=== PATIENT | female | born 1965 | race Caucasian/White ===

== ENCOUNTER 2020-09-08 07:24 | Outpatient (REF) | payer OTHER, SELFPAY ==
--- NOTE | ~2020-09-08 | CT_ITS ---
EXAMINATION: CT CHEST WITHOUT CONTRAST CLINICAL INFORMATION: Pulmonary nodule COMPARISON: Previous chest CT scans January 2018 and February 2019 TECHNIQUE: Multidetector volumetric CT imaging of the chest was done. Axial MIP volume rendering provided. Sagittal and coronal reformatted images were obtained. This CT examination was performed using dose optimization techniques as appropriate, variously including the following: *Automated exposure control *Adjustment of mA and/or kV according to patient size (this includes techniques or standardized protocols for targeted exams where dose is matched to indication/reason for exam; i.e. extremities or head) *Use of iterative reconstruction technique DLP: 146 mGy-cm FINDINGS: OUTBOUND SALES ADVISOR: Unremarkable LUNGS: There are small pulmonary nodules that are stable. The largest is a 5 x 7 mm peripheral or subpleural right middle lobe nodule adjacent to the minor fissure. Again this probably represents a subpleural lymph node. No new pulmonary nodules are seen. MEDIASTINUM: The mediastinum is normal. PLEURA: There is no pleural effusion. No pleural mass or thickening. AXILLA: No lymphadenopathy. UPPER ABDOMEN: There is diverticulosis of the colon. OSSEOUS STRUCTURES: There are mild degenerative changes of the spine and curvature to the left. CT/CT chest wo con IMPRESSION: Stable pulmonary nodules.
== END 2020-09-08 07:25 | disposition home or self-care (01) ==
LOC: HO.CT 07:24
PROVIDERS: PCP Internal Medicine; Visit Provider Surgery
DX: R91.1 Solitary pulmonary nodule (principal)
CPT/HCPCS: 71250

== ENCOUNTER 2020-10-29 11:02 | Outpatient (REF) | payer OTHER, SELFPAY ==
--- NOTE | ~2020-10-29 | MR_ITS ---
EXAMINATION: MR BREAST WITHOUT AND WITH CONTRAST, BILATERAL CLINICAL INFORMATION: High-risk screening. COMPARISON: MRI 01/25/2018. Outside MRI report only 10/31/2019 TECHNIQUE: Imaging was performed with a dedicated breast coil. Prior to the administration of contrast, bilateral axial T1 and bilateral axial T2 weighted sequences were obtained. After the uneventful administration of?7.5 mL of Gadavist, dynamic contrast-enhanced VIBRANT series through the breasts in the axial plane were performed. Subtracted images were performed and reviewed. A delayed sagittal sequence through both breasts was acquired. Additionally, CAD post-processing, including maximum intensity projections, 3-D reconstructions and kinetic analysis, were performed an independent workstation and reviewed by the interpreting radiologist is a portion of this exam. FINDINGS: The patient's fibroglandular tissue demonstrates moderate background enhancement. LEFT BREAST: No suspicious masslike or non-masslike enhancement. No abnormal skin thickening or nipple retraction. No abnormal architectural distortion. Review of the T2 weighted images demonstrates no fibrocystic changes or dilated ducts. Review of kinetic images reveals no additional findings. RIGHT BREAST: Stable enhancing intramammary lymph node, 8:00. No suspicious masslike or non-masslike enhancement. No abnormal skin thickening or nipple retraction. No abnormal architectural distortion. Review of the T2 weighted images demonstrates no fibrocystic changes or dilated ducts. Review of kinetic images reveals no additional findings. There is no suspicious internal mammary chain or axillary adenopathy. Limited views of the chest and abdomen are unremarkable. Stable T2 hyperintense lesion, partially imaged, within the left lobe of the liver compared to 2018. Finding most consistent with a cyst. MR/MR breast BI wo/w con IMPRESSION: No MR specific evidence of malignancy. ASSESSMENT: LEFT BREAST: BI-RADS 1-Negative RIGHT BREAST: BI-RADS 1-Negative RECOMMENDATIONS: Clinical follow-up. Continued annual mammographic surveillance. Further breast MRI as risk factors dictate.
== END 2020-10-29 11:03 | disposition home or self-care (01) ==
LOC: HO.MRI 11:02
PROVIDERS: Visit Provider Surgery
DX: Z12.39 Encounter for other screening for malignant neoplasm of breast (principal)
CPT/HCPCS: 77049; A9585

== ENCOUNTER → 2021-01-21 09:00 | Outpatient (BNVA) | payer OTHER, SELFPAY | PROVIDERS: Visit Provider Surgery ==

== ENCOUNTER 2021-02-09 12:40 | Outpatient (REF) | payer OTHER, SELFPAY ==
--- NOTE | ~2021-02-09 | MM_ITS ---
EXAMINATION: MM SCREENING DIGITAL BREAST TOMOSYNTHESIS, BILATERAL CLINICAL INFORMATION: Screening. Asymptomatic. The lifetime risk of breast cancer based on the Tyrer-Cuzick Model is 21%. COMPARISON: Mammography: 02/06/2020, 01/31/2019, 01/25/2018, MR breasts 10/29/2020. TECHNIQUE: Digital breast tomosynthesis is performed in both the craniocaudal and mediolateral oblique views along with computer-aided detection (CAD). Synthesized 2D images are generated from the tomosynthesis. Additional exaggerated left CC view is provided. FINDINGS: There are scattered areas of fibroglandular density (ACR BI-RADS breast composition Category b). There are no significant masses, abnormal calcifications, or other abnormalities. Incidental intramammary node again seen mid outer right breast. There is no developing density the breasts. The axilla and skin contours are unremarkable. No significant changes. MM/MM tomosynthesis screening BI IMPRESSION: No mammographic evidence of malignancy. ASSESSMENT: BI-RADS 2: Benign RECOMMENDATION: 1. Routine annual mammography screening. 2. The lifetime risk of breast cancer based on the Tyrer-Cuzick Model is 21%. Additional annual adjunct screening with breast MRI may be of benefit in women with a risk score of 20% or greater. This patient's information was entered into a reminder system with a target due date for their next mammogram.
== END 2021-02-09 12:41 | disposition home or self-care (01) ==
LOC: HO.MAMMO 12:40
PROVIDERS: Visit Provider Surgery
DX: Z12.31 Encounter for screening mammogram for malignant neoplasm of breast (principal)
CPT/HCPCS: 77063; 77067

== ENCOUNTER 2021-09-09 07:26 | Outpatient (REF) | payer OTHER, SELFPAY ==
--- NOTE | ~2021-09-09 | CT_ITS ---
EXAMINATION: CT CHEST WITHOUT CONTRAST CLINICAL INFORMATION: Solitary pulmonary nodule. COMPARISON: CT chest 09/08/2020. TECHNIQUE: Multidetector volumetric CT imaging of the chest was done. Axial MIP volume rendering provided. Sagittal and coronal reformatted images were obtained. This CT examination was performed using dose optimization techniques as appropriate, variously including the following: *Automated exposure control *Adjustment of mA and/or kV according to patient size (this includes techniques or standardized protocols for targeted exams where dose is matched to indication/reason for exam; i.e. extremities or head) *Use of iterative reconstruction technique DLP: 143 mGy-cm FINDINGS: TORPEDO SPECIALIST: Mildly elevated right hemidiaphragm. LUNGS: The lungs are well expanded and clear of acute pneumonic process. There is a 1 mm calcified nodule right upper lobe image 154/6, focal right minor fissure nodular thickening measuring 7 mm, stable. No additional lung nodule seen. MEDIASTINUM: The thyroid lobes are symmetrical and normal. The central trachea and bronchi are widely patent. There is no pericardial effusion seen. No abnormal-sized mediastinal lymph node seen. PLEURA: There is no pleural effusion. No pleural mass or thickening. AXILLA: No lymphadenopathy. UPPER ABDOMEN: Visualized liver, spleen, pancreas and bilateral adrenal glands are normal. There are no radiopaque gallstones. OSSEOUS STRUCTURES: No lytic or sclerotic process seen. There is mild ventral spondylosis. CT/CT chest wo con IMPRESSION: Stable pulmonary nodules. The right minor fissure nodule is likely a small lymph node. Fleischner guidelines were followed.
== END 2021-09-09 07:27 | disposition home or self-care (01) ==
LOC: HO.CT 07:26
PROVIDERS: Visit Provider Surgery
DX: R91.1 Solitary pulmonary nodule (principal)
CPT/HCPCS: 71250

== ENCOUNTER 2021-11-11 08:05 | Outpatient (REF) | payer OTHER, SELFPAY ==
--- NOTE | ~2021-11-11 | MR_ITS ---
EXAMINATION: MR BREAST WITHOUT AND WITH CONTRAST, BILATERAL CLINICAL INFORMATION: High risk screening. Family history of malignant neoplasm of breast. The estimated lifetime risk of developing breast cancer is 21%. COMPARISON: Portions of a previous study 10/29/2020. Mammography (nondiagnostic monitor review): 02/09/2021. TECHNIQUE: A 1.5 T system and a dedicated breast coil. T1-weighted sequences without fat-saturation were obtained prior to the administration of contrast. Fat-saturated T1 and T2-weighted sequences were also acquired. The patient received 7.5 mL of IV gadolinium-based contrast, Gadavist. Multiple sequential dynamic T1-weighted sequences were obtained through both breasts with fat-saturation. Subtracted images were reviewed. CAD postprocessing with 3-D reconstructions, maximum intensity projections and kinetic analysis was performed by the interpreting radiologist at an independent workstation and reviewed as a portion of this exam. FINDINGS: Amount of Remaining Fibroglandular Signal: There are scattered areas of fibroglandular tissue (ACR BI-RADS breast composition category B).* Background Parenchymal Enhancement: Mild Symmetry of Background Enhancement: Symmetric RIGHT BREAST: There are no suspicious findings. Masses: There are no suspicious enhancing masses. There is a sharply circumscribed T2 intense persistently enhancing 0.4 cm mass in the 8 o'clock position 4 cm from the right nipple. This corresponds to a sharply circumscribed low density mass on mammography. This does not require any further evaluation. Non-mass Enhancement: There is no suspicious non-mass enhancement. Focus: There are no suspicious enhancing foci. Non-enhancing Findings: Associated findings: There are no suspicious associated findings. Kinetic Curve Assessment: Initial Phase: There are no suspicious areas of color signal. Delayed Phase: There are no areas of washout kinetics. LEFT BREAST: There are no suspicious findings. Masses: There are no suspicious enhancing masses. Non-mass Enhancement: There is no suspicious non-mass enhancement. Focus: There are no suspicious enhancing foci. Non-enhancing Findings: Associated Findings: There are no suspicious associated findings. Kinetic Curve Assessment: Initial Phase: There are no areas of suspicious color signal. Delayed Phase: There are no areas of washout kinetics. The axillary lymph nodes are morphologically normal. No suspicious internal mammary lymph nodes are seen. No suspicious abnormality in the visualized portions of chest or abdomen. There is an unchanged 1.2 cm circumscribed T2 intense lesion in hepatic segment 2 (series 6, image 35). The stability since 2018 is reassuring. This does not require any further evaluation. MR/MR breast BI wo/w con IMPRESSION: No MR evidence of malignancy. No suspicious interval change. ASSESSMENT: Right Breast: ACR BI-RADS 2: Benign finding. Left Breast: ACR BI-RADS 1: Negative examination. RECOMMENDATIONS: Continue screening.
== END 2021-11-11 08:06 | disposition home or self-care (01) ==
LOC: HO.MRI 08:05
PROVIDERS: Visit Provider Surgery
DX: Z91.89 Other specified personal risk factors, not elsewhere classified (principal); Z80.3 Family history of malignant neoplasm of breast
CPT/HCPCS: 77049; A9585

== ENCOUNTER 2022-02-21 11:50 | Outpatient (REF) | payer OTHER, SELFPAY ==
--- NOTE | ~2022-02-21 | MM_ITS ---
EXAMINATION: MM SCREENING DIGITAL BREAST TOMOSYNTHESIS, BILATERAL CLINICAL INFORMATION: Screening. Asymptomatic. The lifetime risk of breast cancer based on the Tyrer-Cuzick Model is 21%. COMPARISON: Mammography: 02/09/2021, 02/06/2020, 01/31/2019; MRI breasts 11/11/2021 TECHNIQUE: Digital breast tomosynthesis is performed in both the craniocaudal and mediolateral oblique views along with computer-aided detection (CAD). Synthesized 2D images are generated from the tomosynthesis. FINDINGS: There are scattered areas of fibroglandular density (ACR BI-RADS breast composition Category b). There are no significant masses, abnormal calcifications, or other abnormalities. Chronic circumscribed nodule mid 9:00 right breast is similar to prior studies. The axilla and skin contours are unremarkable. MM/MM tomosynthesis screening BI IMPRESSION: No mammographic evidence of malignancy. ASSESSMENT: BI-RADS 2: Benign RECOMMENDATION: Routine annual mammography screening. This patient's information was entered into a reminder system with a target due date for their next mammogram.
== END 2022-02-21 11:51 | disposition home or self-care (01) ==
LOC: HO.MAMMO 11:50
PROVIDERS: PCP Internal Medicine; Visit Provider Surgery
DX: Z12.31 Encounter for screening mammogram for malignant neoplasm of breast (principal)
CPT/HCPCS: 77063; 77067

== ENCOUNTER 2022-08-24 09:04 | Outpatient (REF) | payer OTHER, SELFPAY ==
--- NOTE | ~2022-08-24 | CT_ITS ---
EXAMINATION: CT CHEST WITHOUT CONTRAST CLINICAL INFORMATION: Solitary pulmonary nodule. COMPARISON: CT brain 09/09/2021, 09/08/2020. TECHNIQUE: Multidetector volumetric CT imaging of the chest was done. Axial MIP volume rendering provided. Sagittal and coronal reformatted images were obtained. This CT examination was performed using dose optimization techniques as appropriate, variously including the following: *Automated exposure control *Adjustment of mA and/or kV according to patient size (this includes techniques or standardized protocols for targeted exams where dose is matched to indication/reason for exam; i.e. extremities or head) *Use of iterative reconstruction technique DLP: 143 mGy-cm FINDINGS: SWAGE TOOLSETTER: Well-expanded lungs. LUNGS: The lungs are well expanded and clear of acute pneumonic process. Again visualized is a nodule along the right minor fissure measuring 7 mm x 5 mm and has been stable since last two CT exams. Punctate calcification measuring 1 mm in right upper lobe is stable. MEDIASTINUM: The thyroid lobes are symmetric and normal. The central trachea and the bronchi are widely patent. The heart size and the great vessels are normal caliber. No pericardial effusion seen. No abnormal-size mediastinal or hilar lymph nodes. CORONARY ARTERY CALCIFICATION: None visualized on this study. PLEURA: There is no pleural effusion, thickening or calcified plaques. AXILLA: No lymphadenopathy. UPPER ABDOMEN: Visualized liver, spleen, pancreas and bilateral adrenal glands unremarkable. OSSEOUS STRUCTURES: No aggressive lytic or sclerotic process seen. Minimal ventral spondylosis dorsal spine. CT/CT chest wo IV con IMPRESSION: 1. Stable right minor fissure nodule. No new nodules seen. 2. No abnormal mediastinal or axillary lymphadenopathy. Fleischner guidelines were followed.
== END 2022-08-24 09:05 | disposition home or self-care (01) ==
LOC: HO.CT 09:04
PROVIDERS: PCP Internal Medicine; Visit Provider Surgery
DX: R91.1 Solitary pulmonary nodule (principal)
CPT/HCPCS: 71250

== ENCOUNTER 2023-01-19 08:53 | Outpatient (AMB) | payer OTHER, SELFPAY ==
--- NOTE | 2023-01-19 08:53 | A.OFFVIS_ITS ---
Intake Vital Signs 01/19/23 09:00 Height 5 ft 7 in Weight 163 lb 2 oz BMI 25.5 BP 132/80 Blood Pressure Location Lt brachial Position Sitting Pulse 96 Intake Visit Reasons: YEARLY BREAST EXAMINATION Intake Note: Patient is seen in office for yearly breast exam. 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 Her family history is significant for a maternal great grandmother with breast cancer in their 70s, maternal grandmother with breast cancer in her 60s, maternal aunt with breast cancer at the age of 75, and a maternal aunt with breast cancer at the age of 65. Her mother was diagnosed with an invasive ductal carcinoma, grade 1 measuring 7 mm in diameter at the age of 80. She continues on anastrozole and did not undergo radiation therapy. She seems to be tolerating this well. The patient previously underwent risk evaluation using the Tyrer-Cuzick assessment model and was identified as having a 27% lifetime risk of breast cancer. Genetic testing was negative for BRCA1 and 2. A previous left breast needle localization on 10/23/2008 revealed a radial scar with no malignancy. Her last mammogram dated 02/21/2022 revealed no mammographic evidence of malignancy (BI-RADS 2). The Tyrer-Cuzick remaining lifetime risk of breast cancer was calculated at 21%. MRI of the breasts dated 11/11/2021 revealed no evidence of malignancy in either breast (BI-RADS 2 right, BI-RADS 1 left). She is due for a breast MRI currently. She was found to have nodules in the chest CT performed on 02/12/2008. CT of the chest from 08/24/2021 revealed the previously identified nodules were stable. She denies any new breast symptoms and generally feels well. [facility] Surgical History History of breast biopsy (10/23/08) History of arthroscopy of knee History of lumpectomy of left breast History of foot surgery Family History Mother Breast cancer, Onset Age: 80 Maternal Grandmother Breast cancer, Onset Age: 60 Maternal Aunt Breast cancer, Onset Age: 75 Social History Alcohol intake: never Patient Tobacco Use Status: Never used Tobacco Review of Systems Const All systems reviewed & are unremarkable except as noted in HPI and below Denies chills, Denies fever(s) and Denies poor appetite Card Denies chest pain, Denies rapid heart rate and Denies irregular heart rhythm Resp Denies chest congestion, Denies cough and Denies hemoptysis GI Denies abdominal pain, Denies constipation and Denies diarrhea Denies nipple discharge Skin/Breast Denies breast swelling, Denies breast skin changes, Denies breast pain, Denies breast mass, Denies change in breast shape and Denies nipple discharge Neuro Reports no additional complaints Mk/Lymph Denies lymphadenopathy Physical Exam Vital Signs: Last Vital Signs Pulse 96 01/19/23 09:00 BP 132/80 01/19/23 09:00 BMI result Body Mass Index 25.5 Const General: healthy appearing, no acute distress and well developed Nutritional Appearance: well nourished Orientation/consciousness: patient oriented x3 Limitations: no limitations HEENT Head: Yes normocephalic and Yes atraumatic Neck Neck: Yes no lymphadenopathy and Yes no JVD Chest Other: Left breast: No skin change, no nipple retraction, no nipple discharge, no palpable mass, no enlarged lymph nodes. Right breast: No skin change, no nipple retraction, no nipple discharge, no palpable mass, no enlarged lymph nodes GI Inspection: Yes normal to inspection Skin General skin exam: no rashes or lesions noted Neuro General: patient oriented x3 Extrem General: Yes no clubbing, cyanosis or edema Assessment & Plan Assessment & Plan (1) Family history of breast cancer: Code(s): Z80.3 - Family history of malignant neoplasm of breast (2) At high risk for breast cancer: Code(s): Z91.89 - Other specified personal risk factors, not elsewhere classified (3) Lung nodule: Code(s): R91.1 - Solitary pulmonary nodule Plan 57-year-old female returning for a yearly breast evaluation due to her high risk for breast cancer. She feels well and has no ongoing breast symptoms. Her most recent mammogram of 02/21/2022 revealed no evidence of malignancy (BI-RADS 2). She is due for a repeat mammogram in February 2023. MRI dated 11/11/2021 revealed no evidence of malignancy or new suspicious findings (BI-RADS 1 left and BI-RADS 2 right). She is now due for an annual breast MRI. Examination today revealed no suspicious findings in either breast, no skin changes, no nipple discharge, no enlarged lymph nodes. She should follow up in approximately 1 year for clinical breast examination. She is welcome to call sooner for any concerns. Orders: Orders MR breast BI wo/w con Today Z80.3 - Family history of malignant neoplasm of breast, Z91.89 - Other specified personal risk factors, not elsewhere classified Coding Level of Care Code Est Pt Level 3 (72450) Diagnoses Family history of breast cancer Z80.3 At high risk for breast cancer Z91.89 Lung nodule R91.1
[2023-01-19 09:00] VITALS: BP 132/80; PULSE 96; BMI 25.5
== END 2023-01-19 09:12 | disposition home or self-care (01) ==
PROVIDERS: PCP Internal Medicine; Visit Provider Surgery
DX: Z80.3 Family history of malignant neoplasm of breast (principal); Z91.89 Other specified personal risk factors, not elsewhere classified; R91.1 Solitary pulmonary nodule
CPT/HCPCS: 99213

== ENCOUNTER → 2023-01-19 08:53 | Outpatient (BNVA) | payer OTHER, SELFPAY | PROVIDERS: PCP Internal Medicine; Visit Provider Surgery | DX: Z80.3 Family history of malignant neoplasm of breast (principal); Z91.89 Other specified personal risk factors, not elsewhere classified ==

== ENCOUNTER 2023-03-05 11:45 | Outpatient (REF) | payer OTHER, SELFPAY | END 2023-03-05 11:46 | disposition home or self-care (01) | LOC: HO.MAMMO 11:45 | PROVIDERS: Absent Provider Obstetrics & Gynecology Gynecology; PCP Internal Medicine; Visit Provider Internal Medicine | DX: Z12.31 Encounter for screening mammogram for malignant neoplasm of breast (principal) | CPT/HCPCS: 77063; 77067 ==

== ENCOUNTER → 2023-03-05 12:00 | Outpatient (BNV) | payer OTHER, SELFPAY | PROVIDERS: Absent Provider Obstetrics & Gynecology Gynecology; PCP Internal Medicine; Visit Provider Radiology Diagnostic Radiology | DX: Z12.31 Encounter for screening mammogram for malignant neoplasm of breast (principal) | CPT/HCPCS: 77063; 77067 ==

== ENCOUNTER 2023-03-15 07:59 | Outpatient (REF) | payer OTHER, SELFPAY ==
--- NOTE | ~2023-03-15 | MR_ITS ---
EXAMINATION: MR BREAST WITHOUT AND WITH CONTRAST, BILATERAL CLINICAL INFORMATION: 57-year-old for high-risk screening family history. Prior to the mottled 21% COMPARISON: MRI 11/11/2021, 10/29/2020 and correlation to mammogram of 03/05/2023 TECHNIQUE: Imaging was performed with a dedicated breast coil. Prior to the administration of contrast, bilateral axial T1 and bilateral axial T2 weighted sequences were obtained. After the uneventful administration of?7.5 mL of Gadavist, dynamic contrast-enhanced VIBRANT series through the breasts in the axial plane were performed. Subtracted images were performed and reviewed. A delayed sagittal sequence through both breasts was acquired. Additionally, CAD post-processing, including maximum intensity projections, 3-D reconstructions and kinetic analysis, were performed an independent workstation and reviewed by the interpreting radiologist is a portion of this exam. FINDINGS: The patient's fibroglandular tissue demonstrates minimal background enhancement. LEFT BREAST: No suspicious masslike or non-masslike enhancement. No abnormal skin thickening or nipple retraction. No abnormal architectural distortion. Review of the T2 weighted images demonstrates no fibrocystic changes or dilated ducts. Review of kinetic images reveals no additional findings. RIGHT BREAST: No suspicious masslike or non-masslike enhancement. No abnormal skin thickening or nipple retraction. No abnormal architectural distortion. Review of the T2 weighted images demonstrates no fibrocystic changes or dilated ducts. Review of kinetic images reveals no additional findings. There is no suspicious internal mammary chain or axillary adenopathy. Limited views of the chest and abdomen are unremarkable. MR/MR breast BI wo/w con IMPRESSION: No MR specific evidence of malignancy. ASSESSMENT: LEFT BREAST: BI-RADS 1-Negative RIGHT BREAST: BI-RADS 1-Negative RECOMMENDATIONS: Routine mammographic imaging as per most recent study and MRI as per high-risk protocol.
[2023-03-15] MEDS: gadobutroL 7.5 ML VIAL IVPUSH (09:04)
== END 2023-03-15 08:00 | disposition home or self-care (01) ==
LOC: HO.MRI 07:59
PROVIDERS: PCP Internal Medicine; Visit Provider Surgery
DX: Z91.89 Other specified personal risk factors, not elsewhere classified (principal); Z80.3 Family history of malignant neoplasm of breast
CPT/HCPCS: 77049; A9585

== ENCOUNTER 2023-08-14 09:07 | Outpatient (AMB) | payer OTHER, SELFPAY ==
--- NOTE | 2023-08-14 09:09 | MHC.OFFVIS ---
Intake Vital Signs 08/14/23 09:18 Height 5 ft 7 in Weight 164 lb BMI 25.7 BP 174/71 H Blood Pressure Location Lt brachial Position Sitting Pulse 108 H Intake Visit Reasons: lump in groin area, had CT done Intake Note: Patient is seen in office for evaluation and treatment of a lump in the right groin area. 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 She reports since half-way she has been more active with exercise including performing squats and playing pickleball. She developed increased pain and swelling in the pubic area and bilateral groins right greater than left. She also reported hematuria which is being worked up by Urology. She recently underwent CT abdomen and pelvis which revealed no evidence of a hernia. She has been icing the groins but does not feel this is helping. She mainly feels the swelling on the right lower quadrant now. She denies nausea, vomiting, fever or chills. I have been no changes in her bowel habits. [facility], [facility] Surgical History History of breast biopsy (10/23/08) History of arthroscopy of knee History of lumpectomy of left breast History of foot surgery Family History Mother Breast cancer, Onset Age: 80 Maternal Grandmother Breast cancer, Onset Age: 60 Maternal Aunt Breast cancer, Onset Age: 75 Social History Alcohol intake: never Patient Tobacco Use Status: Never used Tobacco Review of Systems Const All systems reviewed & are unremarkable except as noted in HPI and below Physical Exam Const General: no acute distress Nutritional Appearance: well nourished Orientation/consciousness: patient oriented x3 Limitations: no limitations HEENT Head: Yes normocephalic and Yes atraumatic Resp Effort & Inspection: normal respiratory effort, no audible wheezes, no cough and no respiratory distress GI Other: Examination in the standing position with Valsalva maneuvers reveals no palpable inguinal hernia on either side. No spigelian hernia appreciated. Patient points to the area of the inguinal canal as the most tender however no lumps are appreciated. Inspection: Yes normal to inspection Palpation (GI): Soft to palpation, nontender, no guarding and not rigid Skin Other: Warm, dry, no rash Neuro General: patient oriented x3 Extrem Other: No peripheral edema Assessment & Plan Assessment & Plan (1) Abdominal muscle strain: Code(s): S39.011A - Strain of muscle, fascia and tendon of abdomen, initial encounter Qualifiers: Encounter type: initial encounter Qualified Code(s): S39.011A - Strain of muscle, fascia and tendon of abdomen, initial encounter Plan Patient presents with complaints of lower abdominal pain/groin pain after a period of exercise. Review of a CT abdomen and pelvis revealed no evidence of an inguinal hernia, spigelian hernia, diverticulitis, abscess formation or other fluid collections. There is evidence of diverticulosis however. Exam is more suggestive of muscle strain from the recent exercise. No hernias are identified by examination either. I recommended a period of rest relaxation with warm compresses or warm soaks to the groin. She should take ibuprofen 200 mg as needed for increased discomfort. She is welcome to return for any changes. Coding Level of Care Code Est Pt Level 3 (69583) Diagnoses Strain of abdominal muscle, initial encounter S39.011A Encounter type: initial encounter
[2023-08-14 09:18] VITALS: BP 174/71; PULSE 108; BMI 25.7
== END 2023-08-14 10:01 | disposition home or self-care (01) ==
PROVIDERS: PCP Internal Medicine; Visit Provider Surgery
DX: S39.011A Strain of muscle, fascia and tendon of abdomen, initial encounter (principal)
CPT/HCPCS: 99213

== ENCOUNTER → 2023-08-14 09:07 | Outpatient (BNVA) | payer OTHER, SELFPAY | PROVIDERS: PCP Internal Medicine; Visit Provider Surgery ==

== ENCOUNTER 2024-01-18 08:56 | Outpatient (AMB) | payer BC, SELFPAY ==
--- NOTE | 2024-01-18 08:58 | A.OFFVIS_ITS ---
Vital Signs 01/18/24 09:04 Height 5 ft 7 in Weight 166 lb 2 oz BMI 26.0 BP 148/71 H Blood Pressure Location Lt brachial Position Sitting Pulse 92 Intake Visit Reasons: YEARLY BREAST EXAMINATION Intake Note: Patient is seen in office for yearly breast exam. 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 Wright presenting today for a yearly breast examination due to a high risk for breast cancer. Her family history is significant for a maternal great grandmother with breast cancer in their 70s, maternal grandmother with breast cancer in her 60s, maternal aunt with breast cancer at the age of 75, and a maternal aunt with breast cancer at the age of 65. Her mother was diagnosed with an invasive ductal carcinoma, grade 1 measuring 7 mm in diameter at the age of 80. She continues on anastrozole and did not undergo radiation therapy. She seems to be tolerating this well. The patient previously underwent risk evaluation using the Tyrer-Cuzick assessment model and was identified as having a 27% lifetime risk of breast cancer. Genetic testing was negative for BRCA1 and 2. A previous left breast needle localization on 10/23/2008 revealed a radial scar with no malignancy. Her last mammogram dated 03/05/2023 revealed no mammographic evidence of malignancy (BI- RADS 2). The Tyrer-Cuzick remaining lifetime risk of breast cancer was calculated at 21%. MRI of the breasts dated 03/15/2023 revealed no evidence of malignancy in either breast (BI-RADS 1 bilaterally). She is due for a breast MRI currently. She was found to have nodules in the chest CT performed on 02/12/2008. CT of the chest from 08/24/2021 revealed the previously identified nodules were stable. She denies any new breast symptoms and generally feels well. [facility] Surgical History History of breast biopsy (10/23/08) History of arthroscopy of knee History of lumpectomy of left breast History of foot surgery Family History Mother Breast cancer, Onset Age: 80 Maternal Grandmother Breast cancer, Onset Age: 60 Maternal Aunt Breast cancer, Onset Age: 75 Social History Alcohol intake: never Patient Tobacco Use Status: Never used Tobacco Review of Systems Const All systems reviewed & are unremarkable except as noted in HPI and below Physical Exam Const General: healthy appearing, no acute distress and well developed Nutritional Appearance: well nourished Orientation/consciousness: patient oriented x3 Limitations: no limitations HEENT Head: Yes normocephalic and Yes atraumatic Neck Neck: Yes no lymphadenopathy and Yes no JVD Chest Other: Left breast: No skin change, no nipple retraction, no nipple discharge, no palpable mass, no enlarged lymph nodes. Right breast: No skin change, no nipple retraction, no nipple discharge, no palpable mass, no enlarged lymph nodes GI Inspection: Yes normal to inspection Skin General skin exam: no rashes or lesions noted Neuro General: patient oriented x3 Extrem General: Yes no clubbing, cyanosis or edema Assessment & Plan Assessment & Plan (1) Family history of breast cancer: Code(s): Z80.3 - Family history of malignant neoplasm of breast Category: Medical (2) At high risk for breast cancer: Code(s): Z91.89 - Other specified personal risk factors, not elsewhere classified Category: Medical (3) Lung nodule: Code(s): R91.1 - Solitary pulmonary nodule Category: Medical Plan 58-year-old female returning for a yearly breast evaluation due to her high risk for breast cancer. She feels well and has no ongoing breast symptoms. Her most recent mammogram of 03/05/2023 revealed no evidence of malignancy (BI-RADS 2). MRI dated 03/15/2023 revealed no evidence of malignancy or new suspicious findings (BI-RADS 1 bilaterally). Examination today revealed no suspicious findings in either breast, no skin changes, no nipple discharge, no enlarged lymph nodes. She should follow up in approximately 1 year for clinical breast examination. She is welcome to call sooner for any concerns. Coding Level of Care Code Est Pt Level 3 (49367) Diagnoses Family history of breast cancer Z80.3 At high risk for breast cancer Z91.89 Lung nodule R91.1
[2024-01-18 09:04] VITALS: BP 148/71; PULSE 92; BMI 26.0
== END 2024-01-18 09:15 | disposition home or self-care (01) ==
PROVIDERS: PCP Internal Medicine; Visit Provider Surgery
DX: Z80.3 Family history of malignant neoplasm of breast (principal); Z91.89 Other specified personal risk factors, not elsewhere classified; R91.1 Solitary pulmonary nodule
CPT/HCPCS: 99213

== ENCOUNTER → 2024-01-18 08:56 | Outpatient (BNVA) | payer BC, SELFPAY | PROVIDERS: PCP Internal Medicine; Visit Provider Surgery | DX: Z80.3 Family history of malignant neoplasm of breast (principal); Z91.89 Other specified personal risk factors, not elsewhere classified ==

== ENCOUNTER 2024-03-06 11:41 | Outpatient (REF) | payer BC, SELFPAY ==
--- NOTE | ~2024-03-06 | MM_ITS ---
EXAMINATION: MM SCREENING DIGITAL BREAST TOMOSYNTHESIS, BILATERAL CLINICAL INFORMATION: Screening. Asymptomatic. COMPARISON: Mammography: Comparison is made with available priors TECHNIQUE: Digital breast mammography with tomosynthesis is performed in both the craniocaudal and mediolateral oblique views along with computer-aided detection (CAD). FINDINGS: The breasts are heterogeneously dense, which may obscure small masses (ACR BI-RADS breast composition Category c). There are no significant masses, abnormal calcifications, or other abnormalities. MM/MM tomosynthesis screening BI IMPRESSION: No mammographic evidence of malignancy. ASSESSMENT: BI-RADS BI-RADS 1 - Negative RECOMMENDATION: Routine annual mammography screening. 1 year F/U This examination should not preclude the clinical evaluation of a suspicious palpable abnormality. This patient's information was entered into a reminder system with a target due date for their next mammogram. Electronically signed by: Della Moore DO 03/15/2024 10:30 AM EDT
== END 2024-03-06 11:42 | disposition home or self-care (01) ==
LOC: HO.MAMMO 11:41
PROVIDERS: Absent Provider Surgery; PCP Obstetrics & Gynecology Gynecology; Visit Provider Internal Medicine
DX: Z12.31 Encounter for screening mammogram for malignant neoplasm of breast (principal)
CPT/HCPCS: 77063; 77067

== ENCOUNTER → 2024-03-06 11:45 | Outpatient (BNV) | payer BC, SELFPAY | PROVIDERS: Absent Provider Surgery; PCP Obstetrics & Gynecology Gynecology; Visit Provider Internal Medicine | DX: Z12.31 Encounter for screening mammogram for malignant neoplasm of breast (principal) | CPT/HCPCS: 77063; 77067 ==

== ENCOUNTER 2024-09-19 12:57 | Outpatient (REF) | payer BC, SELFPAY ==
--- NOTE | ~2024-09-19 | MR_ITS ---
EXAMINATION: MR BREAST WITHOUT AND WITH CONTRAST, BILATERAL CLINICAL INFORMATION: Strong family history of breast cancer including mother and grandmother and other relatives. COMPARISON: Mammography February 2024 breast MRI April 02 04 December 2019 02 November 2020. TECHNIQUE: MR imaging of the breast was performed using T1, T2 and fat saturated techniques. Dynamic multiphase imaging was also performed after administration of intravenous gadolinium contrast agent. Computer generated 3-D reconstruction was performed. FINDINGS: There is heterogeneous fibroglandular breast tissue with minimal background enhancement. LEFT BREAST: No suspicious enhancing masses or areas of nonmass enhancement. No architectural distortion. No internal mammary or axillary adenopathy. RIGHT BREAST: No suspicious enhancing masses or areas of nonmass enhancement. No architectural distortion. No internal mammary or axillary adenopathy. Normal-appearing intramammary lymph node central outer right breast stable on prior breast MRIs dating back to 2020. Limited views of the chest and abdomen are unremarkable. MR/MR breast BI wo/w con IMPRESSION: No MR specific evidence of malignancy. ASSESSMENT: LEFT BREAST: BI-RADS 1-Negative RIGHT BREAST: BI-RADS 1-Negative RECOMMENDATIONS: Yearly screening mammography. Yearly breast MRI screening surveillance. Electronically signed by: Della Moore DO 09/21/2024 10:10 PM EDT
--- OUTSIDE RECORDS SUMMARY | 2024-09-19 13:03 | XMS_ITS | Patient Health Record ---
Author Organization [facility] Address [address] [place] [address] Care Team Providers Care Pt Sitter Name Role Phone TERESA LLANOS Primary Care Provider Nita marciaandreyLisa Souza Unavailable [phone] Allergies Allergen (clinical drug ingredient) Drug/Non Drug Allergy documented on EMR Reaction Allergy Type Onset Date Status meperidine DEMEROL Unknown Drug Allergy Active Results Component Value Reference Range Notes PDF Report Reviewed date:01/09/2024 02:41:18 PM Interpretation: Performing Lab:[facility], [address], [address], [place], Phone - [phone], [facility] Notes/Report: No. of containers..01 ThinPrep Vial Dates / Results....12/23/20 -HPV- Clinical Information:[id number] IGP No Culture 30 Plus Reviewed date:01/09/2024 02:41:33 PM Interpretation: Performing Lab:[facility] [place], [address], [address], [place], Phone - [phone], Director - [facility] Notes/Report: Clinical Information:[id number] Dates / Results....12/23/20 -HPV- No. of containers..01 ThinPrep Vial DIAGNOSIS: NEGATIVE FOR INTRAEPITHELIAL LESION OR MALIGNANCY. CELLULAR CHANGES ASSOCIATED WITH ATROPHY ARE PRESENT. Specimen adequacy: Satisfactory for evaluation. Endocervical component may not be distinguished in cases of atrophy. Clinician provided ICD10: Z0 1.419 Performed by: Yvette hill, [employer] (ASCP) . . Note: The Pap smear is a screening test designed to aid in the detection of premalignant and malignant conditions of the uterine cervix. It is not a diagnostic procedure and should not be used as the sole means of detecting cervical cancer. Both false-positive and false-negative reports do occur. . Test Methodology: This liquid based ThinPrep(R) pap test was screened with the use of an image guided system. HPV Aptima Negative Negative This nucleic acid amplification test detects fourteen high-risk HPV types (16,18,31,33,35,39,45,51,52,56,58 ,59,66,68) without differentiation. HPV Genotype Reflex Criteria not met, HPV Genotype not performed. Urinalysis Reviewed date:01/04/2024 09:33:33 AM Interpretation: Performing Lab: Notes/Report: PH 7.0 PROTEIN TR GLUCOSE NEG BLOOD NEG Reason For Referral No Information Medications Medication SIG (Take, Route, Frequency, Duration) Notes Start Date End Date Status Estradiol Vaginal Cream 0.01% 1 Gram to the affected area Vaginal/Vulva Twice a week for 90 Days 12/29/2022 Active Lisinopril-hydroCHLOROthia zide 10-12.5 MG TK 0.5 T PO QD Oral for 90 Active Centrum - Orally Active Social History Tobacco Use: Social History Observation Description Date Details (start date - stop date) Never Smoker NA - NA Tobacco Use/Smoking Question Answer Notes Are you a nonsmoker Alcohol Screen (Audit-C) Question Answer Notes Did you have a drink contain ing alcohol in the past year? Yes How often did you have a dri nk containing alcohol in the past year? Monthly or less (1 point) How many drinks did you have on a typical day when you were drinking in the past year? 1 or 2 drinks (0 point) Points 1 Interpretation Negative Sexual History Question Answer Notes Had sex in the past 12 months (vaginal, oral, or anal)? No Problems Problem Type SNOMED Code ICD Code Onset Dates Problem Status W/U Status Risk Notes Problem Postmenopausal atrophic vaginitis (04965430) Postmenopausal atrophic vaginitis (N95.2) Active confirmed Problem Gynecological examination normal (067932138591111) Encounter for gynecological examination (general) (routine) without abnormal findings (Z01.419) Active confirmed Problem Perforated diverticulum of large intestine (699879902) Diverticulitis of large intestine with perforation and abscess without bleeding (K57.20) Active confirmed Problem Disorder of breast (69182521) Other specified disorders of breast (N64.89) Active confirmed Problem Atrophy of vulva (459375209) Atrophy of vulva (N90.5) Active confirmed Problem Calculus of kidney (94732304) Calculus of kidney (592.0) Active confirmed Major Problem Breast lump (36515100) Lump or mass in breast (611.72) Active confirmed Diag Problem Gynecological examination normal (790632241096065) Routine gynecological examination (V72.31) Active confirmed Vital Signs Temperature 97.1 degrees Fahrenheit 01/04/2024 Blood pressure diastolic 74 mm Hg 01/04/2024 Height 67 in 01/04/2024 Blood pressure systolic 118 mm Hg 01/04/2024 Weight 164 lbs 01/04/2024 BMI 25.68 kg/m2 01/04/2024 Encounters Encounter Location Date Provider Diagnosis [facility] [place] [address] [address] 01/04/2024 Lisa Andrews Encounter for gynecological examination (general) (routine) without abnormal findings Z01.419 ; Encounter for screening mammogram for malignant neoplasm of breast Z12.31 ; Family history of malignant neoplasm of breast Z80.3 ; Other specified disorders of breast N64.89 and Postmenopausal atrophic vaginitis N95.2 [place] [address] [employer] [address] [place] [phone] 08/28/2024 Lisa Andrews [place] [address] [employer] [address] [place] [phone] 11/13/2023 Lisa Andrews Assessments Encounter Date Diagnosis (ICD Code) Assessment Notes Treatment Notes Treatment Clinical Notes Section Notes 01/04/2024 Encounter for gynecological examination (general) (routine) without abnormal findings (ICD-10 - Z01.419) PAP TEST WITH HPV TYPING WAS OBTAINED. 01/04/2024 Encounter for screening mammogram for malignant neoplasm of breast (ICD-10 - Z12.31) REGULAR MAMMOGRAMS AND SBE'S WERE RECOMMENDED. 01/04/2024 Family history of malignant neoplasm of breast (ICD-10 - Z80.3) PAT IS BRCA NEGATIVE. 01/04/2024 Other specified disorders of breast (ICD-10 - N64.89) DISCUSSED PREVIOUS BREAST BIOPSY SHOWING RADIAL SCAR AND ITS IMPLICATIONS. CONTINUE REGULAR MAMMOGRAMS AND MRI'S OR BREAST ULTRASOUND STUDIES. 01/04/2024 Postmenopausal atrophic vaginitis (ICD-10 - N95.2) CONTINUE ESTRADIOL CREAM. SHE WILL CALL FOR REFILLS. Plan Of Treatment Pending Test Test Name Order Date Ultrasound : Breasts, bilateral 10/30/19 MAMMOGRAM, SCREENING 01/04/2024 MAMMOGRAM, SCREENING 12/15/2014 Urinalysis 09/17/2018 Urinalysis 12/26/2021 Urinalysis 05/11/2023 Mammogram (Bilateral), Diagnostic comput er aided 10/29/2014 THIN PREP,HPV,KAVITA IF HPV+ (>29YR)(SCRN) 08/21/2017 MM Digital Mammo Screening 08/21/2017 MM Digital Mammo Screening 03/31/2016 MM Digital Mammo Screening 12/26/2021 MM Digital Mammo Screening 12/29/2022 MM Digital Mammo Screening 12/23/2020 MM Digital Mammo Screening 01/04/2024 Next Appt Details Provider Name:Lisa Roosevelt walls, 01/09/2025 08:50:00 AM, [address], [address], [place], [address], Insurance Providers Payer Name Payer Address Payer Phone Subscriber Number Group Number Insured Name Patient Relationship to Insured Coverage Start Date Coverage End Date [employer] [place] [address] [place] [address] [id number] IRINA LEI Self - patient is the insured 4 Medical (General) History Medical History History ICD Code Unspecified lump in breast N63 Calculus of kidney N20.0 Menopausal and female climacteric states N95.1 Family history of malignant neoplasm of breast Z80.3 Inconclusive mammogram R92.2 Polyp of cervix uteri N84.1 Hematuria, unspecified R31.9 Postmenopausal atrophic vaginitis N95.2 Atrophy of vulva N90.5 Other specified disorders of breast N64. 89 Diverticulitis of large inte colleen with perforation and abscess without bleeding K57.20 Surgical History Surgery Date(Month/Year) Left Lumpectomy - Benign Left Foot Surgery Colonoscopy 03/2018 Hospitalization History Reason Date(Month/Year) See Surgical Hx
--- OUTSIDE RECORDS SUMMARY | 2024-09-19 13:03 | XMS_ITS ---
Author Organization [facility] Address [address] [place] [address] Care Team Providers Care Chief Growth Officer Name Role Phone TERESA LLANOS Primary Care Provider Lisa Ahuja [phone] REASON FOR VISIT MRI showed uterine fibroid Encounters Encounter Location Date Provider Diagnosis [facility] [address] [place] [address] 11/13/2023 Lisa Andrews Plan Of Treatment Next Appt Details Provider Name:Lisa walls, 01/09/2025 08:50:00 AM, [address], [address], [place], [address], Progress Notes * IRINA LEIDOB:1965 (57 yo F)Acc No.[id number]:11/13/2023 Patient:?IRINA LEI :1965???Age:57 Y???Sex:Female Address:[address] [place] [address], [place], [address] * true * Date:? Generated for Printi ng/Falilag/eTransmitting on:?09/19/2024 01:03 PM EDT
--- OUTSIDE RECORDS SUMMARY | 2024-09-19 13:03 | XMS_ITS ---
Author Organization [employer] [facility] Address [address] [place] [address] Care Team Providers Care Hot Worker Name Role Phone TERESA LLANOS Primary Care Provider Nita marciaandreyLisa Souza Unavailable [phone] Allergies Allergen (clinical drug ingredient) Drug/Non Drug Allergy documented on EMR Reaction Allergy Type Onset Date Status meperidine DEMEROL Unknown Drug Allergy Active Results Component Value Reference Range Notes Urinalysis Reviewed date:01/04/2024 09:33:33 AM Interpretation: Performing Lab: Notes/Report: PH 7.0 PROTEIN TR GLUCOSE NEG BLOOD NEG [id number] IGP No Culture 30 Plus Reviewed date:01/09/2024 02:41:33 PM Interpretation: Performing Lab:[facility] [place], [address], [address], [place], Phone - [phone], Director - [facility] Notes/Report: Clinical Information:[id number] Dates / Results....12/23/20 -HPV- No. of containers..01 ThinPrep Vial DIAGNOSIS: NEGATIVE FOR INTRAEPITHELIAL LESION OR MALIGNANCY. CELLULAR CHANGES ASSOCIATED WITH ATROPHY ARE PRESENT. Specimen adequacy: Satisfactory for evaluation. Endocervical component may not be distinguished in cases of atrophy. Clinician provided ICD10: Z0 1.419 Performed by: Yvette hill, Rural Service Engineer (ASCP) . . Note: The Pap smear [...] Criteria not met, HPV Genotype not performed. PDF Report Reviewed date:01/09/2024 02:41:18 PM Interpretation: Performing Lab:[facility] [place], [address], [address], [place], Phone - [phone], Director - [facility] Notes/Report: Clinical Information:[id number] Dates / Results....12/23/20 -HPV- No. 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 60-85+ Medications Medication SIG (Take, Route, Frequency, Duration) [...] Problem Status W/U Status Risk Notes Problem Perforated diverticulum of large intestine (531006146) Diverticulitis of large intestine with perforation and abscess without bleeding (K57.20) Active confirmed Vital Signs Height 67 in 01/04/2024 Weight 164 lbs 01/04/2024 BMI 25.68 kg/m2 01/04/2024 Blood pressure systolic 118 mm Hg 01/04/20 Blood pressure diastolic 74 mm Hg 024 Temperature 97.1 degrees Fahrenheit 01/04/20 Encounters Encounter Location Date Provider Diagnosis Total [address] [place] [address] 01/04/2024 Lisa Andrews Encounter for gynecological examination (general) (routine) without abnormal findings Z01.419 ; Encounter for screening mammogram for malignant neoplasm of breast Z12.31 ; Family history of malignant neoplasm of breast Z80.3 ; Other specified disorders of breast N64.89 and Postmenopausal atrophic vaginitis N95.2 Assessments Encounter Date Diagnosis (ICD Code) Assessment [...] WILL CALL FOR REFILLS. Plan Of Treatment Treatment Notes Assessment Notes Encounter for gynecological examination (general) (routine) without abnormal findings PAP TEST WITH HPV TYPING WAS OBTAINED. Encounter for screening mamm ogram for malignant neoplasm of breast REGULAR MAMMOGRAMS AND SBE'S WERE RECOMMENDED. Family history of malignant neoplasm of breast PAT IS BRCA NEGATIVE. Other specified disorders of breast DISCUSSED PREVIOUS BREAST BIOPSY SHOWING RADIAL SCAR AND ITS IMPLICATIONS. CONTINUE REGULAR MAMMOGRAMS AND MRI'S OR BREAST ULTRASOUND STUDIES. Postmenopausal atrophic vaginitis CONTINUE ESTRADIOL CREAM. SHE WILL CALL FOR REFILLS. Pending Test Test Name Order Date MAMMOGRAM, SCREENING 01/04/2024 MM Digital Mammo Screening 01/04/2024 Next Appt Details Follow Up: 1 Year, Reason: Provider Name:Lisa walls, 01/09/2025 08:50:00 AM, [address], [address], [place], [address], Progress Notes * IRINA LEIDOB:1965 (58 yo F)Acc No.[id number]:01/04/2024 PROGRESS NOTES Patient:?IRINA LEI Appointment Provider:?Lisa walls M.D. 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 PAT ENTERED MENOPAUSE IN 2014.? SHE HAS HAD SEVERE VAGINAL DRYNESS AND DYSPAREUNIA RELIEVED BY ESTRADIOL CREAM.? SHE APPLIES THIS Q 3 DAYS. SHE RETIRED LAST YEAR AND FOUND SHE HAD MORE TIME TO EXERCISE.? SHE HAS BEEN EXERCISING VIGOROUSLY? AND INVOLVING HERSELF IN MORE SPORTS, FINDING RELEASE OF TENSION FROM TAKING CARE OF HER AGING PARENTS THIS WAY.? SHE NOTED BURNING PAINS ALONG BILATERAL INGUINAL AND LOWER ABDOMINAL? AREAS.? PELVIC ULTRASOUND ORDERED BY DR CHRISTOPHER AND UROLOGIC EVALUATION WERE NORMAL.? CT SCAN OF THE ABDOMEN AND PELVIS IN JULY 2023 WAS ALSO NORMAL.? MRI OF THE AFFECTED AREAS IN AUGUST 2023 SHOWED BILATERAL LABRAL TEARS FROM OVER EXERTION.? SHE HAS BEEN RECEIVING PHYSICAL THEARPY AND REST.? SHE IS FEELING BETTER.?? BREAST BIOPSY DONE IN 2010 SHOWED RADIAL SCAR.? SHE HAS HER MAMMOGRAMS DONE AT [facility] AND THE RADIOLOGIST THERE PERFOMRS YEARLY MAMMOGRAMS NAD MRI'S.?? SHE HAS A STRONG FAMILY HX OF BREAST CA.? HER MOTHER, MGM AND MGGM AND MATERNAL AUNT HAD BREAST CA.? PAT HERSELF IS BRCA NEGATIVE. HER LAST MAMMOGRAM DONE IN MAR 2023 SHOWED BREASTS ARE NOT DENSE AND WAS NORMAL. HER LAST PAP TEST IN 2020 WAS NEGATIVE AND HPV NEGATIVE. SHE HAD A COLONOSCOPY DONE IN 2018 AND IS SCHEDULED FOR ANOTHER ONE THIS YEAR. PFIZER X 2. ???Annual:? Patient presents for annual exam, ages 60-85, postmenopausal. 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 * Medical History:? * Onion Farmer History:?/ Para?0/0.?Sexual activity?not currently sexually active.?Last Pap Smear:?12/23/20 NIL, NEG HPV, 08/21/17 NIL, NEG HRHPV, 11/2013 , neg.?Mammogram:?03/15/23 Breast MRI (No Report) 03/05/23 (No Report) 02/09/21 < 50% density, /02/06/20 ( No Report Done at [place]) MRI 10/31/19, 01/31/19 < 50% density, , 10/31/19 MRI Negative, 01/31/19 < 50% density, 01/2018 3D AND Breast MRI - NORMAL 12/2016 3D, 12/[address] Wright, 12/02/15 50-75% density, 06/22/15 Bilateral Breast MRI, Negative with Dr. Wright. 10/2014 Screening showed Asymmetric Densities . additional Bilateral diagnostic done - negative.?LMP and menses?Musella, 12/11/14 Spotting.? Control:?none.?Colonoscopy?yes 03/2018.? * OB History:?Total pregnancies?0.? * Surgical History:?Left Lumpe ctomy - Benign Left Foot Surgery Colonoscopy 03/2018 * Hospitalization/Major Diagno stic Procedure:?See Surgical Hx * Family History:?Mother: peyton garza, Breast cancer at age 80 Ductal Stage 1 A, bladder cancer,.?Father: alive, Melanoma.?Maternal Grand Mother: breast cancer.?Maternal aunt: breast cancer.? * Social History:?Tobacco Use:?Tobacco Use/Smoking?Are you a?nonsmoker ???Sexual History:?Sexual History?Had sex in the past 12 months (vaginal, oral, or anal)??No ?Details of Sexual History?Are you sexually active??No ???Drugs/Alcohol:?Drugs?Have you used drugs other than those for medical reasons in the past 12 months??No ?Alcohol Screen (Audit-C)?Did you have a drink containing alcohol in the past year??Yes ?How often did you have a drink containing alcohol in the past year??Monthly or less (1 point) ?How many drinks did you have on a typical day when you were drinking in the past year??1 or 2 drinks (0 point) ?Points?1 ?Interpretation?Negative ???Miscellaneous:?Caffeine: yes, frequency:, 1-2 cups per day. ?Children: no. ?Exercise: yes, occasionally. ?Home smoke detector use: yes. ?Marital status: single, . ?Natural support system: yes. ?Occupation: Works full-time. ?Sexual abuse: no. ?Sexually active: no. ?Travel outside of the [place]: no. ?Verbal abuse: no. * Medications:?TakingCentrum - Tablet Orally Lisinopril-hydroCHLOROthiazide 10- 12.5 MG Tablet TK 0.5 T PO QD Oral Estradiol Vaginal Cream 0.01% Cream 1 Gram to the affected area Vaginal/Vulva Twice a week Medication List reviewed and reconciled with the patientTaking Centrum - Tablet Orally Taking Lisinopril-hydroCHLOROthiazide 10- 12.5 MG Tablet TK 0.5 T PO QD Oral Taking Estradiol Vaginal Cream 0.01% Cream 1 Gram to the affected area Vaginal/Vulva Twice a week Medication List reviewed and reconciled with the patient * Allergies:?DEMEROL: Allergyn o[Allergies Verified] Objective: * Vitals:?Ht: 67 in, Wt:164lbs , BMI:25.68Index, BP:118/74mm Hg, Temp:97.1F. * Examination: ???General Exam: ?CONSTITUTIONAL:?General Appearance:?alert, in no acute distress, normal, well nourished ?NECK/THYROID:?Inspection/Palpation:?normal ?Thyroid:?normal size and shape ?RESPIRATORY:?Auscultation: clear to auscultation bilaterally, Respiratory Effort: normal.?CARDIOVASCULAR:?Auscultation: regular rate and rhythm.?BREAST, Right:?Inspection/Palpation:?no discharge, no masses present, no nipple retraction, no skin changes, no skin dimpling, no tenderness, no lymphadenopathy, no axillary mass, no axillary tenderness ?BREAST, Left:?Inspection/Palpation:?no discharge, no masses present, no nipple retraction, no skin changes, no skin dimpling, no tenderness, no lymphadenopathy, no axillary mass, no axillary tenderness ?GASTROINTESTINAL:?Abdomen:?no masses, nontender, nondistended ?Liver and Spleen:?normal ?Hernias:?no hernias present, no inguinal adenopathy ?MUSCULOSKELETAL:?Inspection/Palpation:?no clubbing, cyanosis, or edema ?SKIN:?Skin:?normal ?NEURO/PSYCH:?Orientation:?time , place, person ?Mood/Affect:?normal?Genitourinary: ?EXTERNAL GENITALIA:?External Genitalia:?normal, no lesions ?VAGINA:?Vagina:?normal appearance, no abnormal discharge, no lesions ?BLADDER:?Bladder:?no mass, nontender ?URETHRA:?Urethra:?no erythema or lesions present ?CERVIX:?Cervix:?no lesions, nontender ?UTERUS:?Uterus:?nontender, normal contour, normal mobility, normal size ?ADNEXA:?Adnexa:?no masses, no tenderness ?ANUS AND PERINEUM:?Anus/Perineum:?visually normal??? Assessment: * Assessment: 1.?Encounter for gynecologic al examination (general) (routine) without abnormal findings - Z01.419???2.?Encounter for screening mammogram for malignant neoplasm of breast - Z12.31???3.?Family history of malignant neoplasm of breast - Z80.3?? 4.?Other specified disorders of breast - N64.89???5.?Postmenopausal atrophic vaginitis - N95.2??? Plan: * Treatment: ?LAB: Urinalysis (Collection Date & Time - 01/04/2024)* ? Value Reference Range ?PH 7.0 * ?PROTEIN TR * ?GLUCOSE NEG * ?BLOOD NEG Notes: PAP TEST WITH HPV TYPING WAS OBTAINED.??2.?Encounter for screening mammogram for malignant neoplasm of breast?Imaging: MM Digital Mammo Screening Notes: REGULAR MAMMOGRAMS AND SBE'S WERE RECOMMENDED.??3.?Family history of malignant neoplasm of breast? Notes: PAT IS BRCA NEGATIVE.??4.?Other specified disorders of breast? Notes: DISCUSSED PREVIOUS BREAST BIOPSY SHOWING RADIAL SCAR AND ITS IMPLICATIONS. CONTINUE REGULAR MAMMOGRAMS AND MRI'S OR BREAST ULTRASOUND STUDIES.?? 5.?Postmenopausal atrophic vaginitis? Notes: CONTINUE ESTRADIOL CREAM. SHE WILL CALL FOR REFILLS.?? * Imaging:? * ?Imaging: MAMMOGRAM, SCR EENING * Procedure Codes:? * Preventive Medicine:? ??YOUR PREVENTIVE WELLNESS PLAN:?Osteoporosis prevention?Calcium, D, strength training.?Breast Cancer Screening (Mammogram):?annually.?Cervical Cancer Screening (Pap Smear):?q 3 years with HPV screen.?Colorectal Cancer Screening:?q 10 years.? * Follow Up:?1 Year * Images: Billing Information: * Visit Code:? [id number] Preventive Care Est Pt. Age 65 and over. * Procedure Codes:? * Sign off status: Completed true * Appointment Provider:?Lisa Andrews M.D. Date:?01/04/2024 Generated for Dilcia angel/Mary Ann/Omar on:?09/19/2024 01:03 PM EDT History and Physical Notes * HPI (History of Present Illness) Category Sub-Category Detail Notes Category Not es New/Follow-up Patient Consult PAT ENTERED MENOPAUSE IN 2014. SHE HAS HAD SEVERE VAGINAL DRYNESS AND DYSPAREUNIA RELIEVED BY ESTRADIOL CREAM. SHE APPLIES THIS Q 3 DAYS. SHE RETIRED LAST YEAR AND FOUND SHE HAD MORE TIME TO EXERCISE. SHE HAS BEEN EXERCISING VIGOROUSLY AND INVOLVING HERSELF IN MORE SPORTS, FINDING RELEASE OF TENSION FROM TAKING CARE OF HER AGING PARENTS THIS WAY. SHE NOTED BURNING PAINS ALONG BILATERAL INGUINAL AND LOWER ABDOMINAL AREAS. PELVIC ULTRASOUND ORDERED BY DR CHRISTOPHER AND UROLOGIC EVALUATION WERE NORMAL. CT SCAN OF THE ABDOMEN AND PELVIS IN JULY 2023 WAS ALSO NORMAL. MRI OF THE AFFECTED AREAS IN AUGUST 2023 SHOWED BILATERAL LABRAL TEARS FROM OVER EXERTION. SHE HAS BEEN RECEIVING PHYSICAL THEARPY AND REST. SHE IS FEELING BETTER. BREAST BIOPSY DONE IN 2010 SHOWED RADIAL SCAR. SHE HAS HER MAMMOGRAMS DONE AT [facility] AND THE RADIOLOGIST THERE PERFOMRS YEARLY MAMMOGRAMS NAD MRI'S. SHE HAS A STRONG FAMILY HX OF BREAST CA. HER MOTHER, MGM AND MGGM AND MATERNAL AUNT HAD BREAST CA. PAT HERSELF IS BRCA NEGATIVE. HER LAST MAMMOGRAM DONE IN MAR 2023 SHOWED BREASTS ARE NOT DENSE AND WAS NORMAL. HER LAST PAP TEST IN 2020 WAS NEGATIVE AND HPV NEGATIVE. SHE HAD A COLONOSCOPY DONE IN 2017 AND IS SCHEDULED FOR ANOTHER ONE THIS YEAR. mCASH X 2. Annual General Health Maintenance: Current breast complaints:: no breast pain, mass, discharge, or skin changes Urinary problems:: patient r eports no urinary health problems or bowel health problems Calcium intake:: takes adequ ate calcium via diet and supplementation Significant SEISMOGRAPH OPERATOR HELPER problems:: n o significant lacquer spray booth operator symptoms or problems Examination Category Sub-Category Detail Notes Category Not es General Exam CONSTITUTIONAL: General Appearan ce:: alert, in no acute distress, normal, well nourished NECK/THYROID: Inspection/Palpation:: normal Thyroid:: normal size and shape RESPIRATORY: Auscultation: clear to auscultation bilaterally, Respiratory Effort: normal CARDIOVASCULAR: Auscultation: regula r rate and rhythm GASTROINTESTINAL: Abdomen:: no masses, nontender , nondistended Liver and Spleen:: normal Hernias:: no hernias present, no inguina l adenopathy MUSCULOSKELETAL: Inspection/Palpation:: no clubb ing, cyanosis, or edema SKIN: Skin:: normal NEURO/PSYCH: Orientation:: time , place, pers on Mood/Affect:: normal BREAST, Right: Inspection/Palpation :: no discharge, no masses present, no nipple retraction, no skin changes, no skin dimpling, no tenderness, no lymphadenopathy, no axillary mass, no axillary tenderness BREAST, Left: Inspection/Palpation :: no discharge, no masses present, no nipple retraction, no skin changes, no skin dimpling, no tenderness, no lymphadenopathy, no axillary mass, no axillary tenderness Genitourinary EXTERNAL GENITALIA: External Genitalia:: nor mal, no lesions VAGINA: Vagina:: normal appearance, no a bnormal discharge, no lesions BLADDER: Bladder:: no mass, nontender URETHRA: Urethra:: no erythema or lesions present CERVIX: Cervix:: no lesions, nontender UTERUS: Uterus:: nontender, normal conto ur, normal mobility, normal size ADNEXA: Adnexa:: no masses, no tendernes s ANUS AND PERINEUM: Anus/Perineum:: visually norm al
--- OUTSIDE RECORDS SUMMARY | 2024-09-19 13:03 | XMS_ITS ---
Author Organization [employer] Address [address] [facility] [address] [place] [address] Care Team Providers Care Fire Captain Marine Name Role Phone TERESA LLANOS Primary Care Provider Nita Lisa Tellez Unavailable [phone] REASON FOR VISIT Breast MRI/Or U/S Encounters Encounter Location Date Provider Diagnosis [facility] [address] [place] [address] 08/28/2024 Lisa Andrews Plan Of Treatment Next Appt Details Provider Name:Lisa walls, 01/09/2025 08:50:00 AM, [address], [address], [place], [address], Progress Notes * IRINA LEIDOB:1965 (58 yo F)Acc No.[id number]:08/28/2024 Patient:?IRINA LEI :1965???Age:58 Y???Sex:Female Address:[address] [place] [address], [place], [address] * * Date:?
--- OUTSIDE RECORDS SUMMARY | 2024-09-19 13:03 | XMS_ITS ---
Author Name [facility] Organization Unknown History of Medication Use Medication Directions Dispensed Refills Start Date End Date Stat us No known medications No known medications active Problems Problem Status Onset Date Problem Type Date of Resoluti on Source Pain in left ankle and joints of left foot active EncounterDiagnosisAct CCT Encounters Encounter Type Encounter Reason Primary Diagnosis Location Date Ambulatory Filtr8 11/27/2023 Ambulatory Pain in left ankle and joints of left foot Pain in left ankle and joints of left foot [facility] 11/27/2023 Care Team Organization Name Specialty Phone Email Start Date End Da te [facility] Primary Care 11/30/2023 07/31/19 [facility] 11/26/2023
--- OUTSIDE RECORDS SUMMARY | 2024-09-19 13:03 | XMS_ITS | Clinical Summary ---
Author Organization [facility] Address [address] [place] [address] Care Team Providers Care Contract Recruiter Name Role Phone Melanie Banegas MD Primary Care Provider Allergies No known active allergies Medications No known medications Active Problems No known active problems Social History Tobacco Use Types Packs/Day Years Used Date Smoking Tobacco: Never Assessed Comments Unknown Sex and Gender Information Value Date Recorded Sex Assigned at Female 11/26/2023 9:00 AM EDT Legal Sex Female 9:52 PM EST Gender Identity Female 11/26/2023 9:00 AM EDT Sexual Orientation Other 11/26/2023 9: 00 AM EDT Plan of Treatment Health Maintenance Due Date Last Done Comments Hepatitis C Virus Screening 1965 HIV Screening 11/30/1976 DTaP/Tdap/Td Vaccines (1 - Tdap) 11/30/1982 Pap Smear (Ages 21-65) 11/30/1984 Mammogram 2003 Colonoscopy 11/30/2008 Pneumococcal Vaccines 50+ (1 of 1 - PCV) 11/30/2013 Zoster (Shingles) Vaccine (1 of 2) 11/30/2013 COVID-19 Vaccine ( season) 2024 01/31/2023, 08/24/2021, 02/25/2021, Additional history exists Influenza Vaccine 12/12/2024 01/31/2023, , 01/26/2021, Additional history exists RSV Vaccine 60 years and older and Patients (1 - 1-dose 75+ series) 11/30/2038 Hepatitis B Vaccines Aged Out No long er eligible based on patient's age to complete this topic Insurance BLUE CROSS OUT OF STATE - PPO Care Teams Contract Recruiter Relationship Specialty Start Date End Date Melanie Banegas MD [address] [place] [id number] PCP - General Internal Medicine 11/27/23
[2024-09-19] MEDS: gadobutroL 7.5 ML VIAL IVPUSH (14:16)
== END 2024-09-19 12:58 | disposition home or self-care (01) ==
LOC: HO.MRI 12:57
PROVIDERS: PCP Internal Medicine; Visit Provider Surgery
DX: Z91.89 Other specified personal risk factors, not elsewhere classified (principal); Z80.3 Family history of malignant neoplasm of breast
CPT/HCPCS: 77049; A9585

== ENCOUNTER → 2024-09-19 12:57 | Outpatient (BNV) | payer BC, SELFPAY | PROVIDERS: PCP Internal Medicine; Visit Provider Internal Medicine | DX: Z80.3 Family history of malignant neoplasm of breast (principal) | CPT/HCPCS: 77049 ==

== ENCOUNTER 2025-01-16 08:59 | Outpatient (AMB) | payer BC, SELFPAY ==
--- NOTE | 2025-01-16 09:12 | MHC.OFFVIS ---
Vital Signs 01/16/25 09:13 Height 5 ft 7 in Weight 163 lb 4 oz BMI 25.6 BP 119/67 Blood Pressure Location Lt brachial Position Sitting Pulse 105 H Intake Visit Reasons: YEARLY BREAST EXAMINATION Intake Note: Patient is seen in office for yearly breast exam. Patient c/o: denies any concerns at the time of visit MRI: 09/19/24 mm sched: 03/12/25 Greeting Card Editor Required: No Automotive Porter: Automotive Porter Present Accompanied by: Self / Same As Patient Allergies meperidine (From DEMEROL) Allergy (Mild, Unverified 01/16/25 09:13) NAUSEA HPI Comments Details: 59-year-old female patient, former patient of Dr. Wright presenting today for a yearly breast examination due to a high risk for breast cancer. Her family history is significant for a maternal great grandmother with breast cancer in their 70s, maternal grandmother with breast cancer in her 60s, maternal aunt with breast cancer at the age of 75, and a maternal aunt with breast cancer at the age of 65. Her mother was diagnosed with an invasive ductal carcinoma, grade 1 measuring 7 mm in diameter at the age of 80. She continues on anastrozole and did not undergo radiation therapy. She seems to be tolerating this well. The patient previously underwent risk evaluation using the Tyrer-Cuzick assessment model and was identified as having a 27% lifetime risk of breast cancer. Genetic testing was negative for BRCA1 and 2. A previous left breast needle localization on 10/23/2008 revealed a radial scar with no malignancy. Her last mammogram dated 03/05/2023 revealed no mammographic evidence of malignancy (BI-RADS 2). The Tyrer-Cuzick remaining lifetime risk of breast cancer was calculated at 21%. Her latest CT of the chest was denied by [facility]. Her most recent mammogram of 03/06/2024 revealed no mammographic evidence of malignancy (BI-RADS 1). MRI performed on 09/19/2024 revealed no MR specific evidence of malignancy (BI-RADS 1). She denies any new breast symptoms in either breast. [facility] Surgical History History of breast biopsy (10/23/08) History of arthroscopy of knee History of lumpectomy of left breast History of foot surgery Family History Mother Breast cancer, Onset Age: 80 Maternal Grandmother Breast cancer, Onset Age: 60 Maternal Aunt Breast cancer, Onset Age: 75 Social History Alcohol intake: never Patient Tobacco Use Status: Never used Tobacco Review of Systems Const All systems reviewed & are unremarkable except as noted in HPI and below Physical Exam Vital Signs: Last Vital Signs Pulse 105 H 01/16/25 09:13 BP 119/67 01/16/25 09:13 BMI result Body Mass Index 25.6 Const General: healthy appearing, no acute distress and well developed Nutritional Appearance: well nourished Orientation/consciousness: patient oriented x3 Limitations: no limitations HEENT Head: Yes normocephalic and Yes atraumatic Neck Neck: Yes no lymphadenopathy and Yes no JVD Chest Other: Left breast: No skin change, no nipple retraction, no nipple discharge, no palpable mass, no enlarged lymph nodes. Right breast: No skin change, no nipple retraction, no nipple discharge, no palpable mass, no enlarged lymph nodes GI Inspection: Yes normal to inspection Skin General skin exam: no rashes or lesions noted Neuro General: patient oriented x3 Extrem General: Yes no clubbing, cyanosis or edema Assessment & Plan Assessment & Plan (1) Family history of breast cancer: Code(s): Z80.3 - Family history of malignant neoplasm of breast Category: Medical (2) At high risk for breast cancer: Code(s): Z91.89 - Other specified personal risk factors, not elsewhere classified Category: Medical Plan 59-year-old female returning for a yearly breast evaluation due to her high risk for breast cancer. She feels well and has no ongoing breast symptoms. Her most recent mammogram of 03/06/2024 revealed no mammographic evidence of malignancy (BI-RADS 1). Breast MRI performed on 09/19/2024 revealed no MR specific evidence of malignancy (BI-RADS 1). Examination today revealed no suspicious findings in either breast, no skin changes, no nipple discharge, no enlarged lymph nodes. She should follow up in approximately 1 year for clinical breast examination. She is welcome to call sooner for any concerns. Coding Level of Care Code Est Pt Level 3 (41991) Complex EM visit Add On G2211 Diagnoses Family history of breast cancer Z80.3 At high risk for breast cancer Z91.89
[2025-01-16 09:13] VITALS: BP 119/67; PULSE 105; BMI 25.6
--- OUTSIDE RECORDS SUMMARY | 2025-01-16 09:44 | XMS_ITS | Clinical Summary ---
Author Organization [facility] Address [address] [place], [place] [id number] Phone Care Team Providers Care Drum Tester Name Role Phone Pcp, Unknown Primary Care Provider Unavailabl e Allergies No known active allergies Medications LISINOPRIL ORAL Take by mouth. Active MULTIVITAMIN ORAL Take by mouth. Active NAPROXEN SODIUM (ALEVE ORAL) Take by mouth. Active Active Problems No known active problems Social History Tobacco Use Types Packs/Day Years Used Date Smoking Tobacco: Never Smokeless Tobacco: Never Education Answer Date Recorded Are you interested in more education? Not on millicent e 09/08/2022 Are you concerned about learning? Not on file 09/08/2022 No 09/08/2022 No 09/08/2022 Digital Access Answer Date Recorded No 10/09/2022 No 10/09/2022 No 10/09/2022 Reliable internet access at home? Not on file 10/09/2022 Device with a working camera? Not on file Comments Unknown Sex and Gender Information Value Date Recorded Sex Assigned at Not on file Legal Sex Female 9:44 AM EST Gender Identity Not on file Sexual Orientation Not on file Last Filed Vital Signs Vital Sign Reading Time Taken Comments Blood Pressure 142/97 06/25/2014 1:28 PM EST Pulse 112 06/25/2014 1:28 PM EST Temperature 36.3 C (97.4 F) 08/08/2017 9:51 AM EDT Respiratory Rate - - Oxygen Saturation - - Inhaled Oxygen Concentration - - Weight 72.6 kg (160 lb) 08/08/2017 9:51 AM EDT Height 172.7 cm (5' 8 ) 08/08/2017 9:51 AM EDT Body Mass Index 24.33 08/08/2017 9:51 AM EDT Plan of Treatment Health Maintenance Due Date Last Done Comments Adult Td,Tdap Booster 1965 CREATININE LEVEL 1963 LIPID PANEL 1963 POTASSIUM LEVEL 1963 DEPRESSION SCREENING 1975 HEPATITIS C SCREENING 11/30/1981 HIV ONE-TIME SCREENING (18-6 5 YEARS) 11/30/1981 PAP SMEAR 11/30/1984 MAMMOGRAM 2003 COLOGUARD 11/30/2008 COLONOSCOPY 11/30/2008 COLORECTAL CANCER SCREENING 11/30/2008 FIT TEST 11/30/2008 FOBT 11/30/2008 SIGMOIDOSCOPY 11/30/2008 VIRTUAL COLONOSCOPY 11/30/2008 PNEUMOCOCCAL VACCINES (50+ y ears) (1 of 1 - PCV) 11/30/2013 ZOSTER VACCINES (2 of 2) 09/12/2019 07/18/2019 COVID-19 VACCINE (2 - 2023-2 5 season) 2024 08/18/2020 INFLUENZA VACCINE (#1) 2024 02/07/2020 RSV VACCINE (1 - 1-dose 75+ series) 11/30/2038 SMOKING STATUS SCREENING (On ce After 26 Yrs) Completed 08/08/2017 HEPATITIS A VACCINES Aged Out No long er eligible based on patient's age to complete this topic HIB VACCINES Aged Out No longer eligi ble based on patient's age to complete this topic MENINGOCOCCAL VACCINES (ACWY) Aged Out No longer eligible based on patient's age to complete this topic MENINGOCOCCAL VACCINES (B) Aged Out N o longer eligible based on patient's age to complete this topic Medical Devices Not on file Insurance [place] POS CIGNA O POS CIGNA O POS CIGNA HMO POS [employer] [employer] Care Teams Drum Tester Relationship Specialty Start Date End Date Pcp, Unknown PCP - General 07/17/17 Additional Source Comments The information contained in this document represents components of the legal health record. It is not the complete legal health record.[facility]
--- OUTSIDE RECORDS SUMMARY | 2025-01-16 09:44 | XMS_ITS ---
Author Name [facility] Organization Unknown History of Medication Use Medication Directions Dispensed Refills Start Date End Date Stat us No known medications No known medications active Problems Problem Status Onset Date Problem Type Date of Resoluti on Source Bilateral foot pain [facility] En[facility] Encounter Type Encounter Reason Primary Diagnosis Location Date Ambulatory [facility] 12/02/2024 Ambulatory Pain in right foot Pain in right foot [facility] 12/02/2024 Ambulatory [facility] 11/27/2023 Ambulatory Pain in left ankle and joints of left foot Pain in left ankle and joints of left foot [facility] 11/27/2023 Care Team Organization Name Specialty Phone Email Start Date End Da te [facility] TERESA OHARA Primary [facility] 11/24/2024 [facility]DA [facility] 11/30/2023 01/01/20 [facility] 11/26/2023
--- OUTSIDE RECORDS SUMMARY | 2025-01-16 09:44 | XMS_ITS | Patient Health Record ---
Author Organization [facility] Address [address] [place] [address] Care Team Providers Care School Business Administrator Name Role Phone TERESA LLANOS Primary Care Provider Lisa Ahuja Unavailable [phone] Allergies Allergen (clinical drug ingredient) Drug/Non Drug Allergy documented on EMR Reaction Allergy Type Onset Date Status meperidine DEMEROL Unknown Drug Allergy Active Results Component Value Reference Range Notes Urinalysis Reviewed date:01/09/2025 10:09:46 AM Interpretation: Performing Lab: Notes/Report: PH 5.0 PROTEIN Neg GLUCOSE Neg BLOOD Small Reason For Referral No Information Medications Medication SIG (Take, Route, Fr equency, Duration) Notes Start Date End Date Status Meloxicam 15 MG TAKE 1 TABLET BY KHADRA TH DAILY Oral; Duration: 30 Days Active Estradiol 0.1 MG/GM APPLY 1 GRAM VAGINAL LY TO THE AFFECTED AREA 2 TIMES A WEEK Vaginal; Duration: 90 Days Activ e Xdemvy 0.25 % INSTILL 1 DROP IN SAMANTHA TH EYES TWICE DAILY FOR 6 WEEKS Ophthalmic; Duration: 30 Days Ac tive Lisinopril 20 MG Oral; Duration: 90 Days Active Social History Tobacco Use: Social History Observation Description Date Details (start date - stop date) Never Smoker NA - NA Sexual History Question Answer Notes Had sex in the past 12 months (vaginal, oral, or anal)? No AUDIT-C (Standard) Question Answer Notes Did you have a drink contain ing alcohol in the past year? Yes How often did you have a dri nk containing alcohol in the past year? Monthly or less (1 point) How many drinks did you have on a typical day when you were drinking in the past year? 1 or 2 drinks (0 point) How often did you have six o r more drinks on one occasion in the past year? Never (0 point) Points 1 Interpretation Negative Tobacco Control (Standard) Question Answer Notes Tobacco use: Nonsmoker Problems Problem Type SNOMED Code ICD Code Onset Dates Problem Status W/U Status Risk Notes Problem Postmenopausal atrophic vaginitis (06018779) Postmenopausal atrophic vaginitis (N95.2) Active confirmed Problem Gynecological examination normal (622049236380258) Encounter for gynecological examination (general) (routine) without abnormal findings (Z01.419) Active confirmed Problem Perforated diverticulum of large intestine (203913048) Diverticulitis of large intestine with perforation and abscess without bleeding (K57.20) Active confirmed Problem Disorder of breast (75633712) Other specified disorders of breast (N64.89) Active confirmed Problem Atrophy of vulva (529495438) Atrophy of vulva (N90.5) Active confirmed Problem Calculus of kidney (38597610) Calculus of kidney (592.0) Active confirmed Major Problem Breast lump (85981604) Lump or mass in breast (611.72) Active confirmed Diag Problem Gynecological examination normal (957149110043358) Routine gynecological examination (V72.31) Active confirmed Vital Signs Temperature 97.4 degrees Fahrenheit 01/09/2025 Blood pressure diastolic 82 mm Hg 01/09/2025 Height 67 in 01/09/2025 Blood pressure systolic 142 mm Hg 01/09/2025 Weight 160 lbs 01/09/2025 BMI 25.06 kg/m2 01/09/2025 Encounters Encounter Location Date Provider Diagnosis [facility] [place] [address] [employer] [address] [address] 01/09/2025 Lisa Andrews Encounter for gynecological examination (general) (routine) without abnormal findings Z01.419 ; Encounter for screening mammogram for malignant neoplasm of breast Z12.31 ; Family history of malignant neoplasm of breast Z80.3 ; Other specified disorders of breast N64.89 ; Postmenopausal atrophic vaginitis N95.2 and Dense breasts, unspecified R92.30 [facility] [place] [address] [employer] [facility] [address] [place] [address] 08/28/2024 Lisa Andrews Assessments Encounter Date Diagnosis (ICD Code) Assessment Notes Treatment Notes Treatment Clinical Notes Section Notes 01/09/2025 Encounter for gynecological examination (general) (routine) without abnormal findings (ICD-10 - Z01.419) NO PAP TEST, DUE IN 2026. 01/09/2025 Encounter for screening mammogram for malignant neoplasm of breast (ICD-10 - Z12.31) REGULAR MAMMOGRAMS AND SBE'S WERE RECOMMENDED. 01/09/2025 Family history of malignant neoplasm of breast (ICD-10 - Z80.3) PAT HERSELF IS BRCA NEGATIVE. 01/09/2025 Other specified disorders of breast (ICD-10 - N64.89) DISCUSSED PREVIOUS BREAST BX SHOWING RADIAL SCAR AND ITS IMPLICATIONS. CONITNUE FOLLOW UP WITH BREAST SURGEON AND YEARLY MAMMOGRAMS AND BREAST MRI'S. 01/09/2025 Postmenopausal atrophic vaginitis (ICD-10 - N95.2) CONTINUE ESTRADIOL CREAM. SHE WILL CALL WHEN SHE NEEDS REFILLS. 01/09/2025 Dense breasts, unspecified (ICD-10 - R92.30) DISCUSSED DENSE BREASTS ON MAMMOGRAM AND ITS IMPLICATIONS. 3D MAMMOGRAMS WERE RECOMMENDED. CONTINUE BREAST MRI'S. Plan Of Treatment Pending Test Test Name Order Date Ultrasound : Breasts, bilateral 10/30/19 MAMMOGRAM, SCREENING 01/09/2025 MAMMOGRAM, SCREENING 01/04/2024 MAMMOGRAM, SCREENING 12/15/2014 Urinalysis 09/17/2018 Urinalysis 12/26/2021 Urinalysis 05/11/2023 Mammogram (Bilateral), Diagnostic comput er aided 10/29/2014 THIN PREP,HPV,KAVITA IF HPV+ (>29YR)(SCRN) 08/21/2017 MM Digital Mammo Screening 08/21/2017 MM Digital Mammo Screening 03/31/2016 MM Digital Mammo Screening 12/26/2021 MM Digital Mammo Screening 12/29/2022 MM Digital Mammo Screening 12/23/2020 MM Digital Mammo Screening 01/04/2024 MM Digital Mammo Screening 01/09/2025 Next Appt Details Provider Name:Lisa walls, 01/15/2026 08:50:00 AM, [address], [address], [place], [address], Insurance Providers Payer Name Payer Address Payer Phone Subscriber Number Group Number Insured Name Patient Relationship to Insured Coverage Start Date Coverage End Date [employer] [place] [address] [place] [address] [id number] IRINA LEI Self - patient is the [...] with perforation and abscess without bleeding K57.20 Dense breasts, unspecified R92.30 Mammographic heterogeneous density, bila teral breasts R92.333 Surgical History Surgery Date(Month/Year) Left Lumpectomy - Benign Left Foot Surgery Colonoscopy 03/2018 Hospitalization History Reason Date(Month/Year) See Surgical Hx
--- OUTSIDE RECORDS SUMMARY | 2025-01-16 09:44 | XMS_ITS | Encounter Summary ---
Author Organization [facility] Address [address] [place] [address] Phone Care Team Providers Care Wrinkle Chaser Name Role Phone Rory Peng MD Unavailable [phone] Pcp, Unknown Primary Care Provider Unavailabl e Encounter Details Date Type Department Care Team (Late st Contact Info) Description 08/08/2017 [facility] [address] [place] [address] Social History Tobacco Use Types Packs/Day Years Used Date Smoking Tobacco: Never Smokeless Tobacco: Never Comments Unknown Sex and Gender Information Value Date Recorded Sex Assigned at Not on file Legal Sex Female 9:44 AM EST Gender Identity Not on file Sexual Orientation Not on file documented as of this encounter Plan of Treatment Not on file documented as of this encounter Visit Diagnoses Not on filedocumented in this encounter Care Teams Wrinkle Chaser Relationship Specialty Start Date End Date Pcp, Unknown PCP - General 07/17/17 Rory Peng MD [address] [place] [address] Historical LMR Provider 09/27/14 1 2 documented as of this encounter Additional Source Comments The information contained in this document represents components of the legal health record. It is not the complete legal health record.[facility]
--- OUTSIDE RECORDS SUMMARY | 2025-01-16 09:44 | XMS_ITS | Clinical Summary ---
Author Organization [facility] Address [address] [place] [address] Care Team Providers Care Ship Painter Helper Name Role Phone Melanie Banegas MD Primary Care Provider Allergies No known active allergies Medications No known medications Active Problems No known active problems Encounters Date Type Department Care Team Description 12/02/2024 3:05 PM EDT Ancillary [place] [address] 12/02/2024 3:00 PM EDT [place] [address] Bessie Cali APRN Bilateral foot pain (Primary Dx) from Last 3 Months Social History Tobacco Use Types Packs/Day Years Used Date Smoking Tobacco: Never Assessed Comments Unknown Sex and Gender Information Value Date Recorded Sex Assigned at Female 11/26/2023 9:00 AM EDT Legal Sex Female 9:52 PM EST Gender Identity Female 11/26/2023 9:00 AM EDT Sexual Orientation Other 11/26/2023 9: 00 AM EDT Plan of Treatment Upcoming Encounters Date Type Department Care Team (Late st Contact Info) Description 02/03/2025 11:30 AM EDT [place] [address] Orville Starr MD [address] [place] [address] Health Maintenance Due Date Last Done Comments Hepatitis C Virus Screening 1965 HIV Screening 11/30/1976 DTaP/Tdap/Td Vaccines (1 - Tdap) 11/30/1982 Pap Smear (Ages 21-65) 11/30/1984 Mammogram 2003 Colonoscopy 11/30/2008 Pneumococcal Vaccines 50+ (1 of 1 - PCV) 11/30/2013 Zoster (Shingles) Vaccine (1 of 2) 11/30/2013 Influenza Vaccine 12/12/2024 01/18/2024, , 02/18/2022, Additional history exists RSV Vaccine 60 years and older and Patients (1 - 1-dose 75+ series) 11/30/2038 COVID-19 Vaccine Completed 01/18/2024, , 08/24/2021, Additional history exists Hepatitis B Vaccines Aged Out No long er eligible based on patient's age to complete this topic Procedures Procedure Name Priority Date/Time Associated Diagnosis Comments XR FOOT 3+ VIEWS-BILATERAL Routine 12/02/2024 3:19 PM EDT Bilateral foot pain from Last 3 Months Results * XR Foot 3+ views-Bilateral (12/02/2024 3:19 PM EDT) Narrative OAH - 12/02/2024 3:19 PM EDT This exam was performed in office at [facility] and images reviewed by orthopedic provider. Any findings are documented within ambulatory encounter note on date of service. Bessie Cali APRN IMG DIAGNOSTIC IMAGING OR DERABLES Final Result OA from Last 3 Months Insurance [facility] OUT OF STATE - PPO Care Teams Ship Painter Helper Relationship Specialty Start Date End Date Melanie Banegas MD [address] [place] [address] PCP - General Internal Medicine 11/27/23
== END 2025-01-16 09:26 | disposition home or self-care (01) ==
LOC: HO.HGS 09:00
PROVIDERS: PCP Internal Medicine; Visit Provider Surgery
DX: Z80.3 Family history of malignant neoplasm of breast (principal); Z91.89 Other specified personal risk factors, not elsewhere classified
CPT/HCPCS: 99213

== ENCOUNTER → 2025-01-16 08:59 | Outpatient (BNVA) | payer BC, SELFPAY | PROVIDERS: PCP Internal Medicine; Visit Provider Surgery | DX: Z91.89 Other specified personal risk factors, not elsewhere classified (principal); Z80.3 Family history of malignant neoplasm of breast ==

== ENCOUNTER 2025-03-12 10:59 | Outpatient (REF) | payer BC, SELFPAY ==
--- OUTSIDE RECORDS SUMMARY | 2025-03-12 13:45 | XMS_ITS | Encounter Summary ---
Author Organization [facility] Address [address] [place] [address] Phone Care Team Providers Care Fire Alarm Technician Name Role Phone Rory Peng MD Unavailable [phone] Pcp, Unknown Primary Care Provider Unavailabl e Encounter Details Date Type Department Care Team (Late st Contact Info) Description 08/08/2017 [facility] [address] [place] [address] Social History Tobacco Use Types Packs/Day Years [...] on filedocumented in this encounter Care Teams Fire Alarm Technician Relationship Specialty Start Date End Date Pcp, Unknown PCP - General 07/17/17 Rory Peng MD [address] [place] [address] Historical LMR Provider 09/27/14 1 2 documented as of this encounter Additional Source Comments The information contained in this document represents components of the legal health record. It is not the complete legal health record.[facility]
--- OUTSIDE RECORDS SUMMARY | 2025-03-12 13:45 | XMS_ITS | Patient Health Record ---
Author Organization [facility] Address [address] [place] [address] Care Team Providers Care Tonal Regulator Name Role Phone TERESA LLANOS Primary Care Provider Lisa Ahuja Unavailable [phone] Allergies Allergen (clinical drug ingredient) Drug/Non Drug [...] Status Risk Notes Problem Postmenopausal atrophic vaginitis (61611752) Postmenopausal atrophic vaginitis (N95.2) Active confirmed Problem Gynecological examination normal (419402497611763) Encounter for gynecological examination (general) (routine) without abnormal findings (Z01.419) Active confirmed Problem Perforated diverticulum of large intestine (039791051) Diverticulitis of large intestine with perforation and abscess without bleeding (K57.20) Active confirmed Problem Disorder of breast (36467929) Other specified disorders of breast (N64.89) Active confirmed Problem Atrophy of vulva (358137484) Atrophy of vulva (N90.5) Active confirmed Problem Calculus of kidney (60844355) Calculus of kidney (592.0) Active confirmed Major Problem Breast lump (17056549) Lump or mass in breast (611.72) Active confirmed Diag Problem Gynecological examination normal (996618276978326) Routine gynecological examination (V72.31) Active confirmed Vital Signs Temperature 97.4 degrees Fahrenheit 01/09/2025 Blood pressure diastolic 82 mm Hg 01/09/2025 Height 67 in 01/09/2025 Blood pressure systolic 142 mm Hg 01/09/2025 Weight 160 lbs 01/09/2025 BMI 25.06 kg/m2 01/09/2025 Encounters Encounter Location Date Provider Diagnosis [facility] [place] [address] [employer] [address] [address] 01/09/2025 Lisa Andrews Encounter for gynecological examination (general) (routine) without abnormal findings Z01.419 ; Encounter for screening mammogram for malignant neoplasm of breast Z12.31 ; Family history of malignant neoplasm of breast Z80.3 ; Other specified disorders of breast N64.89 ; Postmenopausal atrophic vaginitis N95.2 and Dense breasts, unspecified R92.30 [place] [address] [facility] [address] [place] [address] 08/28/2024 Lisa Andrews Assessments Encounter Date Diagnosis [...] Provider Name:Lisa walls, 01/15/2026 08:50:00 AM, [address], [address], [place], [address], Insurance Providers Payer Name Payer Address Payer Phone Subscriber Number Group Number Insured Name Patient Relationship to Insured Coverage Start Date Coverage End Date [employer] [place] [address] [place] [address] [id number] IRINA LEI Self - patient is the [...]
--- OUTSIDE RECORDS SUMMARY | 2025-03-12 13:45 | XMS_ITS | Clinical Summary ---
Author Organization [facility] Address [address] [place] [address] Care Team Providers Care Landscaping Supervisor Name Role Phone Melanie Banegas MD Primary Care Provider Allergies No known active allergies Medications No known medications Active Problems No known active problems Encounters Date Type Department Care Team Description 02/10/2025 2:45 PM EDT [facility] [address] [place] [address] Orville Starr MD Bilateral foot pain (Primary Dx) from Last [...] , 02/18/2022, Additional history exists RSV Vaccine 50 years and older and Patients (1 - 1-dose 75+ series) 11/30/2038 COVID-19 Vaccine Completed 01/18/2024, , 08/24/2021, Additional history exists Hepatitis B Vaccines Aged Out No long er eligible based on patient's age to complete this topic Insurance [employer] OUT OF STATE - PPO Care Teams Landscaping Supervisor Relationship Specialty Start Date End Date Melanie Banegas MD [address] [place] [phone] PCP - General Internal Medicine 11/27/23
== END 2025-03-12 11:00 | disposition home or self-care (01) ==
LOC: HO.MAMMO 10:59
PROVIDERS: PCP Internal Medicine; Visit Provider Obstetrics & Gynecology Gynecology
DX: Z12.31 Encounter for screening mammogram for malignant neoplasm of breast (principal)
CPT/HCPCS: 77063; 77067

== ENCOUNTER → 2025-03-12 11:00 | Outpatient (BNV) | payer BC, SELFPAY | PROVIDERS: PCP Internal Medicine; Visit Provider Radiology Body Imaging | DX: Z12.31 Encounter for screening mammogram for malignant neoplasm of breast (principal) | CPT/HCPCS: 77063; 77067 ==